=== PATIENT | female | born 1940 | race Caucasian/White ===

== ENCOUNTER 2025-01-30 09:21 | Day surgery (SDC) | payer MEDICARE, SELFPAY ==
[2025-01-26 11:33] VITALS: BMI 23.2
--- NOTE | 2025-01-26 15:23 | P.CONAN_ITS ---
Documented by User: Precious Ivy NP 01/26/25 15:23 HPI - Anesthesia Eval Consult details Narrative: 84yo F for Left Cataract Extraction IOL Insertion No previous cataract on record PMFSH Past Medical History Medical History Kyphosis of thoracic region Rosacea Osteoporosis IBS (irritable bowel syndrome) HLD (hyperlipidemia) GERD (gastroesophageal reflux disease) Eczematous skin lesions Dermatitis, seborrheic Hx of closed fracture Hx of Clostridium difficile infection Bilateral cataracts HTN (hypertension) Social History Social History Household Members: None Housing: House Patient Tobacco Use Status: Never used Tobacco Use of substances other than those prescribed or required for medical reasons: No Are you DNR?: No Advance Directives: No Advance Directives Information Provided: Yes Advance Directives on File: No Meds Allergies Allergy/AdvReac Type Severity Reaction Status Date / Time latex Allergy Unknown Verified 01/26/25 11:26 vancomycin Allergy lip Verified 01/26/25 11:28 swelling, rash Home Medications ?Medication ?Instructions ?Recorded ?Confirmed ?Last Taken ?Type alendronate 70 mg tablet 70 mg PO QWEEK 01/26/25 01/26/25 Unknown History amlodipine 5 mg-benazepril 40 mg 1 cap PO DAILY 01/26/25 01/26/25 01/30/25 History capsule calcium 600 mg (as carbonate)-vit 1 tab PO BID 01/26/25 01/26/25 Unknown History D3 20 mcg (800 unit) chewable tablet (Caltrate plus D) carboxymethylcellulose sodium 1 % 1 drp ophthalmic (eye) BID 01/26/25 01/26/25 Unknown History eye liquid gel drops estradiol 0.01% (0.1 mg/gram) 1 appful vaginal DAILY 01/26/25 01/26/25 Unknown History vaginal cream (Estrace) famotidine 40 mg tablet 40 mg PO BID 01/26/25 01/26/25 Unknown History hydrochlorothiazide 12.5 mg capsule 12.5 mg PO DAILY 01/26/25 01/26/25 Unknown H istory methylcellulose (with sugar) 2 1 tbsp PO TID 01/26/25 01/26/25 Unknown History gram/19 gram oral powder metoprolol succinate 50 mg 50 mg PO DAILY 01/26/25 01/26/25 01/30/25 History tablet,extended release 24 hr multivitamin 1 tab PO DAILY 01/26/25 01/26/25 Unknown History simvastatin 20 mg tablet 20 mg PO BEDTIME 01/26/25 01/26/25 Unknown History Exam Height,Weight and Vital Signs: Height 5 ft 2 in Weight 57.5 kg Assessment and Plan Assessment Anesthesia Assessment: Chart Reviewed Documented by User: Tania Crawford MD 01/30/25 11:44 PMFSH Past Medical History Medical History Kyphosis of thoracic region Rosacea Osteoporosis IBS (irritable bowel syndrome) HLD (hyperlipidemia) GERD (gastroesophageal reflux disease) Eczematous skin lesions Dermatitis, seborrheic Hx of closed fracture Hx of Clostridium difficile infection Bilateral cataracts HTN (hypertension) Family History Family history of problems with anesthesia: No Surgical History History of Problems with Anesthesia: No Social History Social History Household Members: None Housing: House Patient Tobacco Use Status: Never used Tobacco Use of substances other than those prescribed or required for medical reasons: No Are you DNR?: No Advance Directives: No Advance Directives Information Provided: Yes Advance Directives on File: No Meds Allergies Allergy/AdvReac Type Severity Reaction Status Date / Time latex Allergy Unknown Verified 01/26/25 11:26 vancomycin Allergy lip Verified 01/26/25 11:28 swelling, rash Home Medications ?Medication ?Instructions ?Recorded ?Confirmed ?Last Taken ?Type alendronate 70 mg tablet 70 mg PO QWEEK 01/26/25 01/26/25 Unknown History amlodipine 5 mg-benazepril 40 mg 1 cap PO DAILY 01/26/25 01/26/25 01/30/25 History capsule calcium 600 mg (as carbonate)-vit 1 tab PO BID 01/26/25 01/26/25 Unknown History D3 20 mcg (800 unit) chewable tablet (Caltrate plus D) carboxymethylcellulose sodium 1 % 1 drp ophthalmic (eye) BID 01/26/25 01/26/25 Unknown History eye liquid gel drops estradiol 0.01% (0.1 mg/gram) 1 appful vaginal DAILY 01/26/25 01/26/25 Unknown History vaginal cream (Estrace) famotidine 40 mg tablet 40 mg PO BID 01/26/25 01/26/25 Unknown History hydrochlorothiazide 12.5 mg capsule 12.5 mg PO DAILY 01/26/25 01/26/25 Unknown History methylcellulose (with sugar) 2 1 tbsp PO TID 01/26/25 01/26/25 Unknown History gram/19 gram oral powder metoprolol succinate 50 mg 50 mg PO DAILY 01/26/25 01/26/25 01/30/25 History tablet,extended release 24 hr multivitamin 1 tab PO DAILY 01/26/25 01/26/25 Unknown History simvastatin 20 mg tablet 20 mg PO BEDTIME 01/26/25 01/26/25 Unknown History Exam Airway Mallampati Class: II TM Dist: >3cm Neck ROM: Full Heart: rrr Lungs: cta Assessment and Plan Assessment Anesthesia Assessment: Anesthesia Plan Discussed Final Anesthetic Review Family History of Problems with Anesthesia: No History of Problems with Anesthesia: No NPO: Yes ASA Class: III Final Preanesthetic Review: No Changes in Pt Med Stat, Meds/Allgs Chart Reviewed, Consent Obtained/Reviewed and Anes Risks/Benef Reviewed Patient Risk: Intermediate Procedure Risk: Low Anesthetic Plan Anesthetic Plan: MAC: Disposition: Standard PACU
[2025-01-30 11:12] VITALS: BP 174/66; PULSE 64; RESP 18; TEMP 36.4; O2SAT 96
[2025-01-30] MEDS: Tetracaine HCl/PF 0.5% Oph Sol 4 ML DROPS 1 DROP EYE-LEFT (11:27)
[2025-01-30] MEDS: Lactated Ringers 500 ML 50 ML IV (11:27)
[2025-01-30] MEDS: Phenylephrine HCL 2.5% Oph SoL 2 ML BOTTLE 1 DROP EYE-LEFT ×3 (11:28→11:29)
[2025-01-30] MEDS: Cyclopentolate 1 % Ophth Sol 2 ML DRPBTL 1 DROP EYE-LEFT ×3 (11:28→11:29)
[2025-01-30] MEDS: Ketorolac Tromethamine 0.5% Op 5 ML DROPS 1 DROP EYE-LEFT ×3 (11:28→11:29)
[2025-01-30] MEDS: Tropicamide 1 % Ophth Sol 3 ML BTL 1 DROP EYE-LEFT ×3 (11:28→11:29)
--- NOTE | 2025-01-30 12:22 | MHC.SHP ---
Pre-Procedural Eval Section A - 24 Hr Update-Section A only Date of Service: 01/30/25 The patient is an INPATIENT: No Changes since office visit: No Cold of Flu in the past 2 weeks, No New Medical Problems, No Changes in Medication and No Patient answered all questions The patient has been examined within 24 hours of the surgical procedure. The History & Physical has been completed within 30 days and I have reviewed it.: Yes Section B - Complete if H&P > 30 days Chief Complaint: Age-related nuclear cataract, left eye Allergies: Allergies Allergy/AdvReac Type Severity Reaction Status Date / Time latex Allergy Unknown Verified 01/26/25 11:26 vancomycin Allergy lip Verified 01/26/25 11:28 swelling, rash Plan Diagnosis/Plan: Unchanged I have reviewed the history and physical and performed a pertinent physical examination on my patient. No changes have occurred unless specified. Time Spent With Patient Time: Total time managing care of this patient today ____ minutes.
--- NOTE | 2025-01-30 12:23 | P.PCNO_ITS ---
Ophthalmology Procedure Procedure Date of Service: 01/30/25 Ophthalmology Viscoelastic: Healon Duet Dual Pack Pro Ophthalmology Lenses: IOL Acrysof MP - MA60AC (20) Procedure Notes: PREOPERATIVE DIAGNOSIS: Decreased visual acuity left eye secondary to cataract POSTOPERATIVE DIAGNOSIS: Same PROCEDURE: Left cataract extraction with intraocular lens insertion SURGEON: Russ Esquivel M.D. ANESTHESIA: Topical/MAC ESTIMATED BLOOD LOSS: None COMPLICATIONS: Vitrous to wound requiring a Weck Cell vitrectomy After obtaining informed consent, the patient was brought to the operation room suite and placed in the supine position. After adequate sedation per anesthesia, topi devin drops of Tetracaine were given to the left eye. The eye was then prepped and draped in the usual sterile fashion. The operating room microscope was then positioned over the operative eye and a lid speculum placed. A paracentesis was created. Viscoelastic was then instilled into the anterior chamber. A three plane incision was then created temporally, utilizing a 2.85 mm keratome. Poor dilation required placement of Malyugin Ring.Capsulotomy forceps were then utilized to create a circular tear capsulotomy. Hydrodissection and hydrodelineation were carried out until adequate mobilization of the nucleus occurred. Phacoemulsification was then utilized to remove the dense central nucleus followed by removal of the cortical material utilizing the automated aspiration irrigation unit. Viscoat elastic was instilled into the posterior capsular bag followed by placement of a posterior chamber intraocular lens without difficulty. Vitrous waqs noted in the temporal Incision requiring a Weck Cell Vitrectomy. The residual Viscoat elastic was then removed utilizing the automated IA machine. The wound was check and found to be watertight. The patient tolerated the procedure well and the lid speculum was removed. Intracameral injection of Vigamox 0.1 mL followed by a subtenon injection of Kenalog-40 0.2 mL were administered. The patient will be seen in the a.m.
[2025-01-30 13:04] VITALS: BP 119/98; PULSE 60; RESP 16; TEMP 36.6; O2SAT 99
== END 2025-01-30 13:15 | disposition home or self-care (01) ==
PROVIDERS: PCP Internal Medicine; Visit Provider Ophthalmology
PROC: (CPT 66985; principal; 2025-01-30 13:00)
DX: H25.12 Age-related nuclear cataract, left eye (principal); H57.00 Unspecified anomaly of pupillary function; H59.88 Other intraoperative complications of eye and adnexa, not elsewhere classified; H43.89 Other disorders of vitreous body; Y83.8 Other surgical procedures as the cause of abnormal reaction of the patient, or of later complication, without mention of misadventure at the time of the procedure
CPT/HCPCS: 66982; 67005; J2003; J3301; V2630

== ENCOUNTER 2025-02-13 07:20 | Day surgery (SDC) | payer MEDICARE, SELFPAY ==
[2025-01-26 11:41] VITALS: BMI 23.2
--- NOTE | 2025-02-09 14:19 | HO.ANESPROP2 ---
Documented by User: Precious Ivy NP 02/09/25 14:20 HPI - Anesthesia Eval Consult details Narrative: 84yo F for Right Cataract Extraction IOL Insertion Left eye 01/30/25: Prop 30 PMFSH Past Medical History Medical History Kyphosis of thoracic region Rosacea Osteoporosis IBS (irritable bowel syndrome) HLD (hyperlipidemia) GERD (gastroesophageal reflux disease) Eczematous skin lesions Dermatitis, seborrheic Hx of closed fracture Hx of Clostridium difficile infection Bilateral cataracts HTN (hypertension) Family History Family history of problems with anesthesia: No Surgical History Surgical History History of cataract surgery H/O wrist surgery History of Problems with Anesthesia: No Social History Social History Household Members: None Housing: House Patient Tobacco Use Status: Never used Tobacco Use of substances other than those prescribed or required for medical reasons: No Are you DNR?: No Advance Directives: No Advance Directives Information Provided: Yes Advance Directives on File: No Meds Allergies Allergy/AdvReac Type Severity Reaction Status Date / Time latex Allergy Unknown Verified 02/13/25 08:16 vancomycin Allergy lip Verified 02/13/25 08:16 swelling, rash Home Medications ?Medication ?Instructions ?Recorded ?Confirmed ?Last Taken ?Type alendronate 70 mg tablet 70 mg PO QWEEK 01/26/25 02/13/25 Unknown History amlodipine 5 mg-benazepril 40 mg 1 cap PO DAILY 01/26/25 02/13/25 02/12/25 History capsule calcium 600 mg (as carbonate)-vit 1 tab PO BID 01/26/25 02/13/25 Unknown History D3 20 mcg (800 unit) chewable tablet (Caltrate plus D) carboxymethylcellulose sodium 1 % 1 drp ophthalmic (eye) BID 01/26/25 02/13/25 Unknown History eye liquid gel drops estradiol 0.01% (0.1 mg/gram) 1 appful vaginal DAILY 01/26/25 02/13/25 Unknown History vaginal cream (Estrace) famotidine 40 mg tablet 40 mg PO BID 01/26/25 02/13/25 02/13/25 History hydrochlorothiazide 12.5 mg capsule 12.5 mg PO DAILY 01/26/25 02/13/25 02/12/25 History methylcellulose (with sugar) 2 1 tbsp PO TID 01/26/25 02/13/25 Unknown History gram/19 gram oral powder metoprolol succinate 50 mg 50 mg PO DAILY 01/26/25 02/13/25 02/13/25 History tablet,extended release 24 hr multivitamin 1 tab PO DAILY 01/26/25 02/13/25 Unknown History simvastatin 20 mg tablet 20 mg PO BEDTIME 01/26/25 02/13/25 Unknown History Exam Height,Weight and Vital Signs: Height 5 ft 2 in Weight 57.5 kg Assessment and Plan Assessment Anesthesia Assessment: Chart Reviewed Final Anesthetic Review Family History of Problems with Anesthesia: No History of Problems with Anesthesia: No Documented by User: Tania Crawford MD 02/13/25 08:32 PMFSH Past Medical History Medical History Kyphosis of thoracic region Rosacea Osteoporosis IBS (irritable bowel syndrome) HLD (hyperlipidemia) GERD (gastroesophageal reflux disease) Eczematous skin lesions Dermatitis, seborrheic Hx of closed fracture Hx of Clostridium difficile infection Bilateral cataracts HTN (hypertension) Surgical History Surgical History History of cataract surgery H/O wrist surgery Social History Social History Household Members: None Housing: House Patient Tobacco Use Status: Never used Tobacco Use of substances other than those prescribed or required for medical reasons: No Are you DNR?: No Advance Directives: No Advance Directives Information Provided: Yes Advance Directives on File: No Meds Allergies Allergy/AdvReac Type Severity Reaction Status Date / Time latex Allergy Unknown Verified 02/13/25 08:16 vancomycin Allergy lip Verified 02/13/25 08:16 swelling, rash Home Medications ?Medication ?Instructions ?Recorded ?Confirmed ?Last Taken ?Type alendronate 70 mg tablet 70 mg PO QWEEK 01/26/25 02/13/25 Unknown History amlodipine 5 mg-benazepril 40 mg 1 cap PO DAILY 01/26/25 02/13/25 02/12/25 History capsule calcium 600 mg (as carbonate)-vit 1 tab PO BID 01/26/25 02/13/25 Unknown History D3 20 mcg (800 unit) chewable tablet (Caltrate plus D) carboxymethylcellulose sodium 1 % 1 drp ophthalmic (eye) BID 01/26/25 02/13/25 Unknown History eye liquid gel drops estradiol 0.01% (0.1 mg/gram) 1 appful vaginal DAILY 01/26/25 02/13/25 Unknown History vaginal cream (Estrace) famotidine 40 mg tablet 40 mg PO BID 01/26/25 02/13/25 02/13/25 History hydrochlorothiazide 12.5 mg capsule 12.5 mg PO DAILY 01/26/25 02/13/25 02/12/25 History methylcellulose (with sugar) 2 1 tbsp PO TID 01/26/25 02/13/25 Unknown History gram/19 gram oral powder metoprolol succinate 50 mg 50 mg PO DAILY 01/26/25 02/13/25 02/13/25 History tablet,extended release 24 hr multivitamin 1 tab PO DAILY 01/26/25 02/13/25 Unknown History simvastatin 20 mg tablet 20 mg PO BEDTIME 01/26/25 02/13/25 Unknown History Exam Airway Mallampati Class: II TM Dist: >3cm Neck ROM: Limited Heart: rrr Lungs: cta Assessment and Plan Assessment Anesthesia Assessment: Anesthesia Plan Discussed and Chart Reviewed (inverted t waves on ekg, pt refused work up) Final Anesthetic Review NPO: Yes ASA Class: III Final Preanesthetic Review: No Changes in Pt Med Stat, Meds/Allgs Chart Reviewed, Consent Obtained/Reviewed and Anes Risks/Benef Reviewed Patient Risk: Intermediate Procedure Risk: Low Anesthetic Plan Anesthetic Plan: MAC: Disposition: Standard PACU
[2025-02-13 08:18] VITALS: BP 175/63; PULSE 61; RESP 16; TEMP 36.6; O2SAT 98; BMI 22.3
[2025-02-13] MEDS: Tetracaine HCl/PF 0.5% Oph Sol 4 ML DROPS 1 DROP EYE-RIGHT (08:19)
[2025-02-13] MEDS: Cyclopentolate 1 % Ophth Sol 2 ML DRPBTL 1 DROP EYE-RIGHT ×3 (08:20→08:36)
--- NOTE | 2025-02-13 08:20 | PC.NURSE ---
Patient in preop. Inverted T wave noted on monitor. Rhythm strip posted. Dr. Harman made aware and at bedside. No EKG on file for comparison. Documentation for last visit here (~ two weeks ago for the first eye) shows SR pre and post op. No complaints of recent chest pain or any changes in health over the last two weeks, per patient. Per Dr. Harman, surgery is low risk and no EKG needed preop. OR nurse made aware.
[2025-02-13] MEDS: Tropicamide 1 % Ophth Sol 3 ML BTL 1 DROP EYE-RIGHT ×3 (08:22→08:38)
[2025-02-13] MEDS: Ketorolac Tromethamine 0.5% Op 5 ML DROPS 1 DROP EYE-RIGHT ×3 (08:24→08:40)
[2025-02-13] MEDS: Phenylephrine HCL 2.5% Oph SoL 2 ML BOTTLE 1 DROP EYE-RIGHT ×3 (08:26→08:42)
[2025-02-13] MEDS: Lactated Ringers 500 ML 50 ML IV (08:35)
--- NOTE | 2025-02-13 09:10 | MHC.SHP ---
Pre-Procedural Eval Section A - 24 Hr Update-Section A only Date of Service: 02/13/25 The patient is an INPATIENT: No Changes since office visit: No Cold of Flu in the past 2 weeks, No New Medical Problems, No Changes in Medication and No Patient answered all questions The patient has been examined within 24 hours of the surgical procedure. The History & Physical has been completed within 30 days and I have reviewed it.: Yes Section B - Complete if H&P > 30 days Chief Complaint: Age-related nuclear cataract, right eye Allergies: Allergies Allergy/AdvReac Type Severity Reaction Status Date / Time latex Allergy Unknown Verified 02/13/25 08:16 vancomycin Allergy lip Verified 02/13/25 08:16 swelling, rash Plan Diagnosis/Plan: Unchanged I have reviewed the history and physical and performed a pertinent physical examination on my patient. No changes have occurred unless specified. Time Spent With Patient Time: Total time managing care of this patient today ____ minutes.
--- NOTE | 2025-02-13 09:11 | P.PCNO_ITS ---
Ophthalmology Procedure Procedure Date of Service: 02/13/25 Ophthalmology Viscoelastic: Healon Duet Dual Pack Pro Ophthalmology Lenses: IOL Acrysof MP - MA60AC (18.5) Procedure Notes: PREOPERATIVE DIAGNOSIS: Decreased visual acuity right eye secondary to cataract POSTOPERATIVE DIAGNOSIS: Same PROCEDURE: Right cataract extraction with intraocular lens insertion SURGEON: Russ Esquivel M.D. ANESTHESIA: Topical/MAC ESTIMATED BLOOD LOSS: None COMPLICATIONS: None After obtaining informed consent, the patient was brought to the operating room suite and placed in the supine position. After adequate sedation per anesthesia, topical drops of Tetracaine were given to the right eye. The eye was then prepped and draped in the usual sterile fashion. The operating room microscope was then positioned over the operative eye and a lid speculum placed. A paracentesis was created. Viscoelastic was then instilled into the anterior chamber. A three plane incision was then created temporally, utilizing a 2.85 mm keratome. Capsulotomy forceps were then utilized to create a circular tear capsulotomy. Hydrodissection and hydrodelineation were carried out until adequate mobilization of the nucleus occurred. Phacoemulsification was then utilized to remove the dense central nu cleus followed by removal of the cortical material utilizing the automated aspiration irrigation unit. Viscoelastic was instilled into the posterior capsular bag followed by placement of a posterior chamber intraocular lens without difficulty. The residual Viscoelastic was then removed utilizing the automated IA machine. The wound was checked and found to be watertight. The patient tolerated the procedure well and the lid speculum was removed. Intracameral injection of Vigamox 0.1 mL followed by a subtenon injection of Kenalog-40 0.2 mL were administered. The patient will be seen in the a.m.
[2025-02-13 09:45] VITALS: BP 150/59; PULSE 58; RESP 12; TEMP 36.4; O2SAT 98
== END 2025-02-13 10:00 | disposition home or self-care (01) ==
PROVIDERS: PCP Internal Medicine; Visit Provider Ophthalmology
PROC: (CPT 66985; principal; 2025-02-13 09:30)
DX: H25.11 Age-related nuclear cataract, right eye (principal); H54.7 Unspecified visual loss; H40.1331 Pigmentary glaucoma, bilateral, mild stage; H18.413 Arcus senilis, bilateral; H43.393 Other vitreous opacities, bilateral; I10 Essential (primary) hypertension; E78.00 Pure hypercholesterolemia, unspecified; M81.0 Age-related osteoporosis without current pathological fracture; Z79.899 Other long term (current) drug therapy; Z88.1 Allergy status to other antibiotic agents; Z91.040 Latex allergy status; Z98.890 Other specified postprocedural states
CPT/HCPCS: 66984; J2250; J3301; V2630